=== PATIENT | male | born 1990 ===

== ENCOUNTER 2020-09-20 14:53 | Outpatient (CLI) | payer SELFPAY ==
[2020-09-21 11:17] LABS: Measles IgG Antibody Positive (See Note); Mumps Antibody IgG Positive (See Note); Varicella IgG Antibody Positive (See Note)
[2020-09-21 11:24] LABS: Rubella IgG Ab (UVM) Positive (See Note)
[2020-09-21 15:54] LABS: HBs Antibody, Quant <3.1 mIU/mL (See Note); Hepatitis B Surface Ab Negative (See Note)
[2020-09-23 14:34] LABS: TB Interpretation Negative (Negative)
== END 2020-09-20 14:54 | disposition home or self-care (01) ==
LOC: LBO 14:53
PROVIDERS: Visit Provider Nurse Practitioner Family
DX: Z02.1 Encounter for pre-employment examination (principal); Z11.59 Encounter for screening for other viral diseases; Z11.1 Encounter for screening for respiratory tuberculosis
CPT/HCPCS: 36415; 86706; 86787; 86480; 86735; 86762; 86765

== ENCOUNTER 2023-03-06 15:37 | Outpatient (REF) | payer OTHER, SELFPAY ==
[2023-03-06 14:41] LABS: Source Nasal/Nares
[2023-03-06 15:23] LABS: COVID-19 PCR Negative (Negative)
== END 2023-03-06 15:38 | disposition home or self-care (01) ==
LOC: NCHCN 15:37
PROVIDERS: Visit Provider Physician Assistant Medical
DX: J02.9 Acute pharyngitis, unspecified (principal); Z20.822 Contact with and (suspected) exposure to COVID-19
CPT/HCPCS: 87635; 87070

== ENCOUNTER 2023-08-09 21:17 | Outpatient (REF) | payer OTHER, SELFPAY ==
[2023-08-12 12:23] LABS: Lyme Ab w Rflx to Lyme Confirm Negative (Negative)
== END 2023-08-09 21:18 | disposition home or self-care (01) ==
LOC: LBN 21:17
PROVIDERS: Visit Provider Physician Assistant Medical
DX: L03.90 Cellulitis, unspecified (principal)
CPT/HCPCS: 86618